=== PATIENT | female | born 1990 | race Caucasian/White ===

== ENCOUNTER 2019-05-30 17:50 | Emergency (ER) | payer MEDICAID ==
[~2019-05-30] VITALS: Ht 152.4 cm; Wt 71.2 kg
--- NOTE | 2019-05-30 18:03 | NUR ---
BIB SELF c/o "Abdominal Pain x2days -lower abdomen and back. +nausea. no sob noted, no cp c/o. conected to monitor. kept comfortable. will cont to monitor.
--- NOTE | 2019-05-30 18:15 | NUR ---
JO ANN Potter at bedside for eval.
[2019-05-30] MEDS ORDERED: MORPHINE SULFATE INJ 2 MG/ML DISP.SYRIN IV ONE (18:30)
[2019-05-30] MEDS ORDERED: IV NS 0.9% 1,000 ML BAG IV ONE (18:30)
[2019-05-30] MEDS ORDERED: ONDANSETRON HCL/PF 4 MG/2 ML VIAL IVP ONE (18:30)
[2019-05-30] MEDS ORDERED: MORPHINE SULFATE INJ 4 MG/ML DISP.SYRIN ONE (18:46)
[2019-05-30] MEDS ORDERED: ONDANSETRON HCL/PF 4 MG/2 ML VIAL ONE (18:46)
[2019-05-30 18:50] LABS: BASOPHILS % (AUTO) 0.5 % (0.0-2.0); EOSINOPHILS % (AUTO) 4.4 % (0.0-6.0); HEMATOCRIT 32 % (33-45); HEMOGLOBIN 10.9 g/dL (11.5-14.8); LYMPHOCYTES # (AUTO) 2.4 /CMM (0.8-4.8); LYMPHOCYTES % (AUTO) 28.7 % (20.0-44.0); MEAN CORPUSCULAR HGB CONC 34 g/dl (31.0-36.0); MEAN CORPUSCULAR VOLUME 84 fL (82-100); MONOCYTES # (AUTO) 0.6 /CMM (0.1-1.30); MONOCYTES % (AUTO) 7.3 % (2.0-12.0); NEUTROPHILS % (AUTO) 59.1 % (43.0-81.0); PLATELET COUNT (AUTO) 212 /CMM (150-450); RED BLOOD CELL COUNT(AUTO) 3.83 MIL/uL (4.0-5.2); WHITE BLOOD COUNT (AUTO) 8.5 K/uL (4.3-11.0)
[2019-05-30 18:53] LABS: APPEARANCE,URINE Cloudy (CLEAR); BILIRUBIN,URINE Negative (NEGATIVE); BLOOD, URINE Large Ery/uL (NEGATIVE); COLOR,URINE Amber (YELLOW); KETONES,URINE Negative (NEGATIVE); LEUKOCYTE ESTERASE ,URINE Negative (NEGATIVE); NITRITE, URINE Negative (NEGATIVE); PH,URINE 7.5 (5.0-8.0); PROTEIN,URINE Negative (NEGATIVE); UGLUCOSE Negative (NEGATIVE); UROBILINOGEN,URINE 0.2 EU/dL (0.2)
[2019-05-30 19:00] LABS: CALCIUM, SERUM 8.4 mg/dL (8.5-10.1); CREATININE 0.5 mg/dL (0.6-1.3); POTASSIUM 3.5 mmol/L (3.5-5.1)
[2019-05-30 19:05] LABS: ALBUMIN 3.4 g/dL (3.4-5.0); BILIRUBIN,DIRECT 0.2 mg/dL (0.0-0.2); BILIRUBIN,TOTAL 0.7 mg/dL (0.2-1.0); TOTAL PROTEIN, SERUM 6.8 g/dL (6.4-8.2)
[2019-05-30 19:23] LABS: RBC,URINE TOO NUMEROUS TO COUN /HPF (0-2)
--- NOTE | 2019-05-30 19:23 | NUR ---
ENDORSED TO [facility]OW[facility] FOR CARTER.
[2019-05-30 19:24] LABS: BACTERIA,URINE Few /HPF (None Seen); SQUAMOUS EPITHELIAL CELL,UR Few /HPF (None Seen); WBC,URINE 0-2 /HPF (0-3)
--- NOTE | 2019-05-30 20:03 | NUR ---
CALLED RADIALOGY FOR VENKATESH TECH ON THE FLOOR
--- NOTE | 2019-05-30 20:16 | NUR ---
BREATHING TREATMENT COMPLETED
[2019-05-30 21:08] VITALS: BP 128/75
--- NOTE | 2019-05-30 21:08 | NUR ---
Patient discharged to home in stable condition. Written and verbal after care instructions given. Patient verbalizes understanding of instruction.
== END 2019-05-30 21:09 | disposition home or self-care (01) ==
LOC: ER 17:50
DX: O26.891 Other specified pregnancy related conditions, first trimester (principal); O21.9 Vomiting of pregnancy, unspecified; R19.7 Diarrhea, unspecified; Z3A.00 Weeks of gestation of pregnancy not specified
CPT/HCPCS: 36415; 76805; 80048; 80076; 81001; 83690; 84702; 84703; 85025; 87086; 96361; 96374; 96375; 99284; J2270; J2405; J7030; 81000-TC

== ENCOUNTER 2019-06-05 08:51 | Inpatient (IN) | payer MEDICAID ==
[~2019-06-05] VITALS: Ht 165.1 cm; Wt 70.8 kg
--- NOTE | 2019-06-05 09:30 | NUR ---
PELVIC EXAM DONE BY DR. GOODWIN, CHAPERONED BY FEMALE RN.
[2019-06-05 09:47] LABS: BASOPHILS # (AUTO) 0.1 /CMM (0.0-0.2); BASOPHILS % (AUTO) 0.9 % (0.0-2.0); HEMATOCRIT 34 % (33-45); HEMOGLOBIN 11.6 g/dL (11.5-14.8); LYMPHOCYTES # (AUTO) 3.3 /CMM (0.8-4.8); LYMPHOCYTES % (AUTO) 26.8 % (20.0-44.0); MEAN CORPUSCULAR HGB CONC 34 g/dl (31.0-36.0); MEAN CORPUSCULAR VOLUME 85 fL (82-100); MONOCYTES # (AUTO) 0.6 /CMM (0.1-1.30); MONOCYTES % (AUTO) 5.2 % (2.0-12.0); NEUTROPHILS # (AUTO) 7.8 /CMM (1.8-8.9); NEUTROPHILS % (AUTO) 64.1 % (43.0-81.0); PLATELET COUNT (AUTO) 235 /CMM (150-450); RED BLOOD CELL COUNT(AUTO) 4.05 MIL/uL (4.0-5.2); WHITE BLOOD COUNT (AUTO) 12.2 K/uL (4.3-11.0)
--- NOTE | 2019-06-05 09:48 | NUR ---
US TECH AT BEDSIDE
[2019-06-05 09:53] LABS: APPEARANCE,URINE Clear (CLEAR); BILIRUBIN,URINE Negative (NEGATIVE); BLOOD, URINE Large Ery/uL (NEGATIVE); COLOR,URINE Yellow (YELLOW); KETONES,URINE Negative (NEGATIVE); LEUKOCYTE ESTERASE ,URINE Negative (NEGATIVE); NITRITE, URINE Negative (NEGATIVE); PH,URINE 5.5 (5.0-8.0); PROTEIN,URINE Negative (NEGATIVE); UGLUCOSE Negative (NEGATIVE); UROBILINOGEN,URINE 0.2 EU/dL (0.2)
[2019-06-05 09:54] LABS: CALCIUM, SERUM 8.7 mg/dL (8.5-10.1); CREATININE 0.6 mg/dL (0.6-1.3); POTASSIUM 3.8 mmol/L (3.5-5.1)
[2019-06-05 10:21] LABS: BACTERIA,URINE Rare /HPF (None Seen); RBC,URINE TOO NUMEROUS TO COUN /HPF (0-2); SQUAMOUS EPITHELIAL CELL,UR Few /HPF (None Seen); WBC,URINE 0-2 /HPF (0-3)
--- NOTE | 2019-06-05 10:44 | NUR ---
CALLED DIOR MOLINA [phone]
--- NOTE | 2019-06-05 11:30 | NUR ---
dr. velarde at bedside for eval.
[2019-06-05] MEDS ORDERED: PREN1TAB81 PO (11:46)
[2019-06-05] MEDS ORDERED: MIDAZOLAM HCL 2 MG/2ML VIAL ONE (12:13)
[2019-06-05] MEDS ORDERED: FENTANYL PF 100MCG/2ML AMPUL ONE (12:13)
[2019-06-05] MEDS ORDERED: ROCURONIUM BROMIDE 50 MG/5 ML ONE (12:14)
--- NOTE | 2019-06-05 12:26 | NUR ---
REQUESTED [facility] BED
--- NOTE | 2019-06-05 12:27 | NUR ---
[facility] [facility]
--- NOTE | 2019-06-05 12:28 | NUR ---
[address] [place] [address]
--- NOTE | 2019-06-05 12:40 | NUR ---
PATIENT TAKEN TO OR. PATIENT IN STABLE CONDITION, CONSENTS SIGNED.
[2019-06-05] MEDS ORDERED: NEOSTIGMINE METHYLSULFATE INJ 1 MG/ML VIAL ONE (13:09)
--- NOTE | 2019-06-05 14:08 | NUR ---
MS TELEVISION ANTENNA INSTALLER NOTES Received Patient from OR s/p LAPAROSCOPIC SALPINGECTOMY asleep and resting in bed. Noted Patient very drowsy and unable to respond to admission questions. VS stable with no acute distress. Breathing even and unlabored on room air with no respiratory distress. No signs and symptoms of pain at this time. Limon Cath in place and patent with clear yellow output noted. 20g PIV on RAC clean, dry, intact and flushing well. Abdominal incision dressings clean, dry and intact. Safety precautions in place. Bed locked and set to lowest position with side rails x 2 up. All needs rendered at this time. Call light within reach. Will continue to monitor.
[2019-06-05] MEDS ORDERED: IV LR 1000 ML 1,000 ML IV PRN (14:30)
[2019-06-05] MEDS ORDERED: ONDANSETRON HCL/PF 4 MG/2 ML VIAL IVP PRN (14:30)
--- NOTE | 2019-06-05 15:00 | NUR ---
MS RN NOTES Removed Sow Cath at this time. Noted 150cc clear yellow output on sow bag. Patient tolerated well. Patient stated pain level of 7/10 on abdomen. Will intervene as ordered. Will continue to monitor.
[2019-06-05] MEDS: HYDROMORPHONE 1 MG/1 ML DISP.SYRIN IV PRN (15:30)
[2019-06-05 16:00] VITALS: BP 117/69
--- NOTE | 2019-06-05 18:55 | NUR ---
MS RN CLOSING NOTES Patient awake and resting in bed. VS stable with no acute distress. Breathing even and unlabored on room air with no respiratory distress. Patient states mild tolerable pain at this time. Refused pain medication. Will endorse to oncoming shift. 20g PIV on RAC clean, dry, intact and flushing well. Abdominal incision dressings clean, dry and intact. Safety precautions in place. Bed locked and set to lowest position with side rails x 2 up. All needs rendered at this time. Call light within reach. at bedside. Will endorse plan of care to oncoming shift.
--- NOTE | 2019-06-05 19:20 | NUR ---
CHANGE OF SHIFT REPORT Patient in bed, awake, A/O x4. Abdomen lap site x3, dressing C/D/I no drainage, denies pain. Limon cath removed at 4:00pm per report, has not voided yet, will monitor. Instruction to use call light for assistance, verbalized understanding.
[2019-06-05 20:00] VITALS: BP_SYST 100; BP_DIAS 53; BP_DIAS 55
--- NOTE | 2019-06-05 22:15 | NUR ---
VOIDED Patient ambulated to the bathroom, standby assist. Patient reports voided without difficulty, urine yellow and clear per patient. No c/o bladder discomfort.
[2019-06-06] MEDS: HYDROMORPHONE 1 MG/1 ML DISP.SYRIN IV PRN (00:28)
--- NOTE | 2019-06-06 06:26 | NUR ---
END OF SHIFT REPORT Patient in bed, stable oxygen saturation on RA. IVF discontinued, tolerating PO, denies nausea, no vomiting. Abdomen lap site x3, dressing C/D/I, no drainage, no bleeding. Abdomen pain managed with PRN Dilaudid. Reports passing gas, no BM yet. Afebrile. Hourly rounds, ambulates independently. Fall precaution maintained.
--- NOTE | 2019-06-06 07:04 | NUR ---
MS RN NOTES PATIENT IN BED ALERT ORIENTED X 4. NO ACUTE DISTRESS NOTED. BREATHING UNLABORED. IV ACCESS PATENT AND INTACT. NO REDNESS OR SWELLING NOTED. SURGERY SITE DRESSING CLEAN, DRY AND INTACT, NO BLEEDING NOTED. SAFETY MEASURES IN PLACE. CALL LIGHT WITHIN REACH. WILL CONTINUE TO MONITOR ACCORDINGLY.
--- NOTE | 2019-06-06 15:55 | NUR ---
MS INSTRUCTIONAL MEDIA SERVICES TECHNICIAN NOTTES PATIENT DISCHARGE WITH STABLE VITAL SIGNS. NO ACUTE DISTRESS NOTED. BREATHING UNLABORED. NO COMPLAINT OF PAIN AT THIS TIME. DISCHARGE INSTRUCTIONS GIVEN TO THE PATIENT INCLUDING DOCTOR FOLLOW AND DRESSING KEEP CLEAN, DRY AND INTACT, VERBALIZED UNDERSTANDING.ABDOMINAL SURGICAL DRESSING CLEAN DRY AND INTACT, NO REDNESS OR SWEELING, NO DRAINAGE AROUND THE ARE. ALL BELONGINGS ACCOUNTED FOR. NEEDS ATTENDED AND ANTICIPTED.IV ACCESS REMOVED, NO BLEEDING, NO REDNESS, NO SWELLING NOTED. ASSISTED TO THE LOBBY, PICKED UP VIA PRIVATE CAR ACCOMPANIED BY IN STABLE CONDITION.
== END 2019-06-06 15:40 | disposition home or self-care (01) | DRG 545 ==
LOC: ER 08:53 → MED 12:35
PROVIDERS: ADMIT Obstetrics & Gynecology; ATTEND Obstetrics & Gynecology
PROC: 10T24ZZ Resection of Products of Conception, Ectopic, Percutaneous Endoscopic Approach (ICD-10-PCS; principal; 2019-06-05)
PROC: 0UT64ZZ Resection of Left Fallopian Tube, Percutaneous Endoscopic Approach (ICD-10-PCS; principal; 2019-06-05)
DX: O00.102 Left tubal pregnancy without intrauterine pregnancy (principal); N83.11 Corpus luteum cyst of right ovary
CPT/HCPCS: 36415; 76805-TC; 80048-TC; 81000-TC; 84702-TC; 85025-TC; 85730-TC; A6402; G0378; J0690; J1100; J1170; J1885; J2250; J2704; J2710; J3010; J3490; J7120

== ENCOUNTER 2019-07-14 22:02 | Emergency (ER) | payer MEDICAID ==
[~2019-07-14] VITALS: Ht 147.3 cm; Wt 71.7 kg
[~2019-07-14 22:02] MED LIST: PREN1TAB81 PO
--- NOTE | 2019-07-14 22:24 | NUR ---
PT BIB TO ER C/O OF ABDOMINAL PAIN AND LOWER BACK PAIN. PATIENT HAS HAD AN ECTOPIC 1 MONTH AGO. PT CURRENTLY HAS 8/10 ABDOMINAL PAIN RADIATING TO LOWER BACK. AAOX4. NO SOB. BREATHING EVEN AND UNLABORED. CONNECTED TO MONITOR.
[2019-07-14] MEDS ORDERED: ONDANSETRON HCL/PF 4 MG/2 ML VIAL IVP ONE (22:30)
[2019-07-14] MEDS ORDERED: MORPHINE SULFATE INJ 2 MG/ML DISP.SYRIN IV ONE (22:30)
[2019-07-14] MEDS ORDERED: IV NS 0.9% 1,000 ML BAG IV ONE (22:30)
[2019-07-14 22:34] LABS: APPEARANCE,URINE Clear (CLEAR); BILIRUBIN,URINE Negative (NEGATIVE); BLOOD, URINE Trace-intact Ery/uL (NEGATIVE); COLOR,URINE Yellow (YELLOW); KETONES,URINE Negative (NEGATIVE); LEUKOCYTE ESTERASE ,URINE Trace (NEGATIVE); NITRITE, URINE Negative (NEGATIVE); PROTEIN,URINE Negative (NEGATIVE); UGLUCOSE Negative (NEGATIVE); UROBILINOGEN,URINE 0.2 EU/dL (0.2)
--- NOTE | 2019-07-14 22:39 | NUR ---
BLOOD AND URINE SENT TO LAB
[2019-07-14 22:40] LABS: BASOPHILS # (AUTO) 0.1 /CMM (0.0-0.2); BASOPHILS % (AUTO) 1.3 % (0.0-2.0); EOSINOPHILS % (AUTO) 3.9 % (0.0-6.0); HEMATOCRIT 36 % (33-45); HEMOGLOBIN 11.8 g/dL (11.5-14.8); LYMPHOCYTES # (AUTO) 2.9 /CMM (0.8-4.8); LYMPHOCYTES % (AUTO) 29.7 % (20.0-44.0); MEAN CORPUSCULAR HGB CONC 33 g/dl (31.0-36.0); MEAN CORPUSCULAR VOLUME 83 fL (82-100); MONOCYTES # (AUTO) 0.7 /CMM (0.1-1.30); MONOCYTES % (AUTO) 6.8 % (2.0-12.0); NEUTROPHILS # (AUTO) 5.8 /CMM (1.8-8.9); NEUTROPHILS % (AUTO) 58.3 % (43.0-81.0); PLATELET COUNT (AUTO) 239 /CMM (150-450); RED BLOOD CELL COUNT(AUTO) 4.27 MIL/uL (4.0-5.2); WHITE BLOOD COUNT (AUTO) 9.9 K/uL (4.3-11.0)
[2019-07-14] MEDS ORDERED: MORPHINE SULFATE INJ 4 MG/ML DISP.SYRIN ONE (22:42)
[2019-07-14] MEDS ORDERED: ONDANSETRON HCL/PF 4 MG/2 ML VIAL ONE (22:42)
[2019-07-14 22:45] LABS: CALCIUM, SERUM 8.6 mg/dL (8.5-10.1); CREATININE 0.6 mg/dL (0.6-1.3); POTASSIUM 3.5 mmol/L (3.5-5.1)
--- NOTE | 2019-07-14 23:15 | NUR ---
PT GOING TO CT
[2019-07-14 23:17] LABS: BACTERIA,URINE None seen /HPF (None Seen); RBC,URINE 0-2 /HPF (0-2); SQUAMOUS EPITHELIAL CELL,UR Few /HPF (None Seen); WBC,URINE 0-2 /HPF (0-3)
--- NOTE | 2019-07-15 01:48 | NUR ---
IV removed. Catheter intact and site benign. Pressure and 4x4 applied to site. No bleeding noted. Patient discharged to home in stable condition. Written and verbal after care instructions given. Patient verbalizes understanding of instruction.
--- NOTE | 2019-07-15 01:48 | NUR ---
Patient given and explained prescription. Do not drive while taking medication.
[2019-07-15 01:49] VITALS: BP 124/70
== END 2019-07-15 01:50 | disposition home or self-care (01) ==
LOC: ER 22:04
DX: R10.13 Epigastric pain (principal); Z79.899 Other long term (current) drug therapy
CPT/HCPCS: 36415; 74176; 80048; 81001; 84703; 85025; 96374; 96375; 99284; J2270; J2405; J7030; 81000-TC

== ENCOUNTER 2023-11-30 21:40 | Emergency (ER) | payer MEDICAID, OTHER ==
[~2023-11-30] VITALS: Ht 152.4 cm; Wt 72.6 kg
[2023-11-30] MEDS ORDERED: ONDANSETRON HCL/PF 4 MG/2 ML VIAL ONE (22:48)
[2023-11-30] MEDS ORDERED: FAMOTIDINE/PF INJ 20 MG/2 ML VIAL IV ONE (22:48)
[2023-11-30] MEDS: FAMOTIDINE/PF INJ 20 MG/2 ML VIAL IV ONE (23:01)
[2023-11-30] MEDS: ONDANSETRON HCL/PF 4 MG/2 ML VIAL IVP ONE (23:02)
[2023-11-30 23:11] LABS: BASOPHILS # (AUTO) 0.1 K/uL (0.0-0.2); BASOPHILS % (AUTO) 0.7 % (0.0-2.0); EOSINOPHILS # (AUTO) 0.3 K/uL (0.0-0.7); EOSINOPHILS % (AUTO) 3.3 % (0.0-6.0); HEMATOCRIT 29 % (33-45); HEMOGLOBIN 8.7 g/dL (11.5-14.8); LYMPHOCYTES # (AUTO) 3.7 K/uL (0.8-4.8); MEAN CORPUSCULAR HEMOGLOBIN 20 PG (26.0-33.0); MEAN CORPUSCULAR HGB CONC 30 g/dl (31.0-36.0); MEAN CORPUSCULAR VOLUME 66 fL (82-100); MONOCYTES # (AUTO) 0.5 K/uL (0.1-1.30); MONOCYTES % (AUTO) 4.9 % (2.0-12.0); NEUTROPHILS # (AUTO) 5.7 K/uL (1.8-8.9); NEUTROPHILS % (AUTO) 55.1 % (43.0-81.0); PLATELET COUNT (AUTO) 287 K/uL (150-450); RED BLOOD CELL COUNT(AUTO) 4.38 MIL/uL (4.0-5.2); RED CELL DISTRIBUTION WIDTH 18.2 % (11.5-15.0); WHITE BLOOD COUNT (AUTO) 10.4 K/uL (4.3-11.0)
[2023-11-30 23:12] LABS: APPEARANCE,URINE CLOUDY (CLEAR); BILIRUBIN,URINE NEGATIVE (NEGATIVE); BLOOD, URINE NEGATIVE Ery/uL (NEGATIVE); COLOR,URINE YELLOW (YELLOW); KETONES,URINE NEGATIVE (NEGATIVE); LEUKOCYTE ESTERASE ,URINE TRACE (NEGATIVE); NITRITE, URINE NEGATIVE (NEGATIVE); PROTEIN,URINE NEGATIVE (NEGATIVE); UGLUCOSE NEGATIVE (NEGATIVE); UROBILINOGEN,URINE 0.2 EU/dL (0.2)
[2023-11-30 23:15] LABS: PREGNANCY TEST URINE QUAL NEGATIVE (NEGATIVE)
[2023-11-30 23:16] LABS: ADD URINE CULTURE NO; BACTERIA,URINE Rare /HPF (None Seen); RBC,URINE 0-2 /HPF (0-2); SQUAMOUS EPITHELIAL CELL,UR Rare /HPF (None Seen)
[2023-11-30 23:24] LABS: ALBUMIN 3.6 g/dL (3.4-5.0); BILIRUBIN,DIRECT 0.1 mg/dL (0.0-0.2); BILIRUBIN,TOTAL 0.5 mg/dL (0.2-1.0); CALCIUM, SERUM 8.6 mg/dL (8.5-10.1); CREATININE 0.7 mg/dL (0.6-1.3); POTASSIUM 3.5 mmol/L (3.5-5.1); TOTAL PROTEIN, SERUM 7.5 g/dL (6.4-8.2)
[2023-11-30] MEDS ORDERED: CT SWABBABLE VALVE TRANS SET 1 EA INFUS.SET MC ONE (23:42)
[2023-11-30] MEDS ORDERED: IV NS 0.9% 250 ML IV ONE (23:42)
[2023-11-30] MEDS ORDERED: IOHEXOL-300 100 ML VIAL IV ONE (23:42)
[2023-12-01] MEDS ORDERED: NITR100C6 PO (03:28)
[2023-12-01] MEDS ORDERED: FERR325T23 PO (03:29)
[2023-12-01 03:49] VITALS: BP 138/92; TEMP 98.7; O2SAT 100
== END 2023-12-01 03:49 | disposition home or self-care (01) ==
LOC: ER 21:44
DX: R10.13 Epigastric pain (principal); R11.0 Nausea; D50.9 Iron deficiency anemia, unspecified; R10.2 Pelvic and perineal pain; Z98.890 Other specified postprocedural states; Z79.899 Other long term (current) drug therapy
CPT/HCPCS: 99285; 74177; 96374; 96375; 85025; 80048; 83690; 80076; 84703; 81001; 36415; J3490; J2405; J7050; Q9967